=== PATIENT | female | born 1990 | race Hispanic/Latino ===

== ENCOUNTER 2024-12-03 05:30 | Inpatient (IN) | payer BC, OTHER ==
[2024-12-03 06:57] VITALS: BMI 28.4
[2024-12-03] MEDS: Lactated Ringer's 1,000 ML IV SCH (07:10)
[2024-12-03] MEDS: Penicillin G Potassium 5 MILL.UNITS VIAL ONE (07:15)
[2024-12-03] MEDS ORDERED: Lidocaine 1% (PF) 30 ML VIAL SC PRN (07:15)
[2024-12-03] MEDS ORDERED: hydrALAZINE 20 MG/ML VIAL SLOW IVP PRN ×2 (07:15→20:38)
[2024-12-03] MEDS ORDERED: Ibuprofen 800 MG TAB PO PRN (07:15)
[2024-12-03] MEDS: Sodium Chloride 0.9% 100 ML ONE (07:15)
[2024-12-03] MEDS ORDERED: Ondansetron PF 4 MG/2 ML Vial IVP PRN ×3 (07:15→20:38)
[2024-12-03] MEDS ORDERED: fentaNYL 50 mcg/mL 1 mL Vial SLOW IVP PRN (07:15)
[2024-12-03] MEDS ORDERED: Promethazine HCl 25 MG/ML VIAL IM PRN ×2 (07:15→14:36)
[2024-12-03] MEDS ORDERED: HYDROcodone/Acetaminophen 5/325 mg Tablet PO PRN ×4 (07:15→20:38)
[2024-12-03] MEDS ORDERED: Oxytocin 30 units/NS 500 ML 500 ML IV SCH ×2 (07:15→20:38)
[2024-12-03] MEDS: Oxytocin 30 units/NS 500 ML 500 ML IV SCH (07:24)
[2024-12-03 08:21] LABS: Hematocrit 39.4 % (34.9-44.5); Hemoglobin 12.4 g/dL (12.0-15.5); Mean Corpuscular HGB CONC 31.5 g/dL (32.0-36.0); Mean Corpuscular Hemoglobin 28.1 pg (27.0-33.0); Mean Corpuscular Volume 89.3 fL (81.6-98.3); Mean Platelet Volume 10.6 fL (7.4-10.4); Platelet Count 216 10x3/uL (150-450); RBC Distribution Width 15.2 % (11.5-14.5); Red Blood Cell (RBC) Count 4.41 10x6/uL (3.90-5.03); White Blood Cell (WBC) Count 7.07 10x3/uL (3.5-10.5)
[2024-12-03 08:27] LABS: Syphilis Antibody Nonreactive (Nonreactive); Syphilis Antibody Index 0.04 S/CO (<1.00 Non-Reactive)
[2024-12-03 08:29] LABS: HBsAg Index 0.19 S/CO (0-0.99); Hep B Surf Ag - L&D Non-Reactive S/CO (NonReactive)
[2024-12-03 09:03] LABS: HIV (1/2) Antibody/Antigen Non-Reactive (NonReactive); HIV 1/2 INDEX 0.12 S/CO (<1.00)
[2024-12-03] MEDS: Penicillin G 2.5 MILL.units 2.5 MILL.UNITS in Premix 1 BAG IVPB SCH (11:39)
[2024-12-03] MEDS: fentaNYL 2 mcg/Ropivacaine 0.2% Epidural 100 ML CADD EPIDURAL SCH (14:25)
[2024-12-03] MEDS ORDERED: Moisturizing Cream (Eucerin) 113 GM JAR TOP PRN (14:36)
[2024-12-03] MEDS ORDERED: ePHEDrine Sulfate 50 MG/10 ML VIAL SLOW IVP PRN (14:36)
[2024-12-03] MEDS ORDERED: diphenhydrAMINE 50 MG/ML VIAL IVP PRN (14:36)
[2024-12-03] MEDS ORDERED: Lactated Ringer's 500 ML IV PRN (14:36)
[2024-12-03] MEDS ORDERED: Acetaminophen 325 MG TAB PO PRN (14:36)
[2024-12-03] MEDS ORDERED: Naloxone HCl 0.4 mg/ml Vial IVP PRN ×2 (14:36)
[2024-12-03] MEDS ORDERED: Communication Order-Pharmacy FS SCH (14:45)
[2024-12-03] MEDS ORDERED: Lanolin Ointment 7 GM TUBE TOP PRN (20:38)
[2024-12-03] MEDS ORDERED: Milk Of Magnesia 30 ML UDCUP PO PRN (20:38)
[2024-12-03] MEDS ORDERED: Preparation H Ointment 28 GM TUBE PR PRN (20:38)
[2024-12-03] MEDS ORDERED: diphenhydrAMINE 25 MG CAP PO PRN (20:38)
[2024-12-03] MEDS ORDERED: Bisacodyl 10 MG SUPP PR PRN (20:38)
[2024-12-03] MEDS: Penicillin G Potassium 5 MILL.UNITS in Sodium Chloride 0.9% 100 ML IVPB SCH (20:47)
[2024-12-03] MEDS: Oxytocin 30 units/NS 500 ML 500 ML ONE (20:47)
[2024-12-03] MEDS: Boostrix 0.5 ML (Tdap) VIAL (>/=7 yrs of age) IM ONE (20:47)
[2024-12-03] MEDS: Ferrous Sulfate 325 MG TAB PO SCH (20:47)
[2024-12-03] MEDS: Benzocaine-Menthol 82.5 ML CAN TOP PRN (21:35)
[2024-12-03] MEDS: Ibuprofen 800 MG TAB PO SCH (21:48)
[2024-12-03] MEDS: Docusate 100 MG CAP PO SCH (21:49)
[2024-12-04] MEDS: Ferrous Sulfate 325 MG TAB PO SCH (07:16)
[2024-12-04] MEDS: Prenatal Vitamin 1 TAB PO SCH (08:46)
[2024-12-04 11:23] VITALS: BP 116/67; TEMP 97.7
== END 2024-12-04 17:50 | disposition home or self-care (01) | DRG 807 ==
LOC: CSHLD 05:37 → CSHPP 20:15
PROVIDERS: ADMIT Obstetrics & Gynecology; ATTEND Obstetrics & Gynecology
PROC: 10E0XZZ Delivery of Products of Conception, External Approach (ICD-10-PCS; principal; 2024-12-03)
PROC: 0HQ9XZZ Repair Perineum Skin, External Approach (ICD-10-PCS; 2024-12-03)
DX: O99.824 Streptococcus B carrier state complicating childbirth (principal); Z37.0 Single live birth; Z3A.39 39 weeks gestation of pregnancy; O76 Abnormality in fetal heart rate and rhythm complicating labor and delivery; O70.0 First degree perineal laceration during delivery
CPT/HCPCS: 51702; 85027; 86780; 86850; 86900; 86901; 87340; 87389; J2540; J2590; J7120